=== PATIENT | male | born 1960 | race Caucasian/White ===

== ENCOUNTER → 2023-12-01 | Outpatient (CLI) | payer BC ==
[~2023-12-01] MED LIST: AMOXICILLIN 8751 TAB PO; ATIVAN 0.50.5 MG/TAB PO; PERCOCET 325 MG1 TA2 PO
== END ==
LOC: COL.RAD 06:33
DX: K80.50 Calculus of bile duct without cholangitis or cholecystitis without obstruction (principal); R11.0 Nausea